=== PATIENT | male | born 1985 | race Caucasian/White ===

== ENCOUNTER 2016-11-19 04:27 | Emergency (ER) | payer OTHER ==
[2016-11-19] MEDS ORDERED: CYCLOBENZAPRINE HCL 10 MG TABLET PO ONE (04:59)
[2016-11-19] MEDS ORDERED: NAPROXEN SODIUM 550 MG TABLET PO ONE (05:02)
[2016-11-19] MEDS ORDERED: CYCLOBENZAPRINE HCL 10 MG TABLET ONE (05:06)
[2016-11-19] MEDS ORDERED: NAPROXEN SODIUM 550 MG TABLET ONE (05:06)
--- NOTE | 2016-11-19 05:17 | ERNOTE ---
Back Pain ER HPI Presenting Symptoms: other - left buttock pain Time Seen by Provider: 11/19/16 04:45 Source: patient Exam Limitations: no limitations Immunizations: IMMUNIZATION HX Immunizations Up to Date Yes History of Influenza Vaccine Yes Hx Pneumococcal Vaccination No Allergies/Adverse Reactions: Allergies No Known Allergies Allergy (Unverified 06/22/14 08:54) Home Medications: HOME MEDICATIONS Insulin Glargine,Hum.rec.anlog [Lantus] 24 units SUBCON DAILY 02/16/14 [Last Taken 06/22/14] Novolin R 10 units SUBCON QID 02/16/14 [Last Taken 06/22/14] Cyclobenzaprine HCl [Flexeril] 10 mg PO TID PRN #30 tab 11/19/16 [Last Taken Unknown] Nabumetone 750 mg PO BID #20 tablet 11/19/16 [Last Taken Unknown] Narrative: left buttock pain onset 3-4 days ago and worsening. Has tried OTC pain medication without improvement Timing: Reports: getting worse Quality/Severity: Reports: moderate, severe, aching Location of pain: Reports: other - left buttock Activities at Onset: Reports: none Recent Injury?: Reports: no Modifying Factors - (Worsens): Reports: movement flexion - of left hip Associated Symptoms: Reports: difficulty walking. Denies: constipation/ incontinence, numbess/weakness in legs Review of Systems - Review of Systems Constitutional: Present: no symptoms reported Gastrointestinal/Abdominal: Absent: abdominal pain Genitourinary: Absent: frequency, dysuria Musculoskeletal: Absent: neck pain, joint pain Skin: Present: no symptoms reported Neurological: Absent: weakness, numbness, tingling - Patient's Past Medical History Patient History - Medical: Diabetes Type 1 Patient History - Cardiac/Respiratory: No pertinent hx, Asthma Patient History - Cancer: No Hx of Cancer Patient History - Surgical Procedures: No surgical history Patient History - Other: None - Social History Smoking Status: Former smoker - Immunizations Immunizations Up to Date: Yes Hx Pneumococcal Vaccination: No History of Influenza Vaccine: Yes Physical Exam - Physical Exam General Appearance: Present: wd/wn, alert, no apparent distress Head Exam: Present: normal inspection, no evidence of injury Eye Exam: Normal inspection: bilateral Neck: Present: normal inspection, nontender, supple Respiratory: Present: no respiratory distress, no accessory muscle use Back Exam: Present: normal range of motion, no CVA tenderness, no vertebral tenderness Extremity Exam: Present: normal except - - left buttock tenderness to piraformis muscle. pain increased with SLR without radiation and increased with left hip flexion with bent knee. Neurological Exam: Present: alert, oriented, normal mood/affect, no motor/ sensory deficits Skin Exam: Present: normal color, warm/dry ED Progress - Vital Signs Vital Signs: Vital Signs 11/19/16 04:36 Temperature 36.7 C Pulse Rate 78 Respiratory 15 Rate Blood Pressure 124/75 O2 Sat by Pulse 100 Oximetry - Progress/Reassessment Chief Complaint: Back Pain Departure Clinical Impression: Piriformis muscle pain - Departure Disposition: Home self-care Condition: Good Instructions: Muscle Cramps and Spasms, [id number] Additional Instructions: take the muscle relaxer up to 3 times a day if you can. If it makes you too tired then take it only at bedtime. Prescriptions: Cyclobenzaprine HCl [Flexeril] 10 mg PO TID PRN #30 tab PRN Reason: MUSCLE SPASMS Nabumetone 750 mg PO BID #20 tablet
[2016-11-19 06:09] VITALS: BP 115/77
== END 2016-11-19 05:10 | disposition home or self-care (01) ==
LOC: ER 04:27
DX: M79.1 Myalgia (principal); E10.9 Type 1 diabetes mellitus without complications